=== PATIENT | male | born 1990 | race Caucasian/White ===

== ENCOUNTER 2017-03-11 20:16 | Emergency (ER) | payer OTHER | END 2017-03-11 22:39 | disposition home or self-care (01) | DX: J06.9 Acute upper respiratory infection, unspecified (principal); B97.89 Other viral agents as the cause of diseases classified elsewhere ==

== ENCOUNTER 2017-06-10 14:13 | Emergency (ER) | payer OTHER ==
[2017-06-10 14:19] VITALS: BP 127/79
[2017-06-10] MEDS ORDERED: HYDROcod/ACETAM 5/325 MG TABLET PO STA (15:02)
--- NOTE | 2017-06-10 15:05 | ED Physician Documentation ---
PD HPI LOWER EXT INJURY - Stated complaint Stated Complaint: L LEG INJURY - Chief complaint Chief Complaint: Ext Problem - History obtained from History obtained from: Patient - History of Present Illness PD HPI LOW EXT INJURY LOCATION: Left, Upper leg (Doing sprints today and felt a pop in his left hamstring and now has significant pain there but is able to walk and bear weight.) Review of Systems Constitutional: reports: Reviewed and negative Cardiac: reports: Reviewed and negative Respiratory: reports: Reviewed and negative PD PAST MEDICAL HISTORY - Past Surgical History Past Surgical History: Yes HEENT: Tonsil/Adenoidectomy - Present Medications Home Medications: Ambulatory Orders Medication Instructions Recorded Confirmed HYDROcod/ACETAM 5/325 [[place] 5/325] 1 - 2 ea PO Q6H PRN #10 tablet 06/10/17 Ibuprofen [Motrin] 800 mg PO Q8H PRN #30 tablet 06/10/17 - Allergies Allergies/Adverse Reactions: Allergies Allergy/AdvReac Type Severity Reaction Status Date / Time No Known Drug Allergies Allergy Verified 03/11/17 20:48 - Social History Does the pt smoke?: No Smoking Status: Never smoker Does the pt drink ETOH?: No Does the pt have substance abuse?: No - Immunizations Immunizations are current?: Yes - POLST Patient has POLST: No PD ED PE NORMAL - Vitals Vital signs reviewed: Yes - General General: Alert and oriented X 3, No acute distress - Extremities Extremities: Other (Tender to palpation over the left hamstring, and unable to flex at the knee actively because of pain) - Neuro Neuro: Alert and oriented X 3, Normal speech - Psych Psych: Normal mood, Normal affect Results - Vitals Vitals: Vital Signs - 24 hr 06/10/17 14:17 Temperature 35.5 C L Heart Rate 94 Respiratory 18 Rate Blood Pressure 127/79 O2 Saturation 100 Oxygen O2 Source Room air Departure - Departure Disposition: 01 Home, Self Care Clinical Impression: Hamstring sprain Qualifiers: Encounter type: initial encounter Laterality: left Qualified Code(s): S73.192A - Other sprain of left hip, initial encounter Condition: Good Record reviewed to determine appropriate education?: Yes Instructions: Strains Sprains Tx Prescriptions: Ibuprofen [Motrin] 800 mg PO Q8H PRN #30 tablet PRN Reason: PAIN &/OR FEVER HYDROcod/ACETAM 5/325 [[place] 5/325] 1 - 2 ea PO Q6H PRN #10 tablet PRN Reason: Pain Comments: Call your doctor to arrange a follow-up appointment, make the next available appointment. In the interim, return anytime if worse or if new symptoms develop. Forms: Activity restrictions
[2017-06-10] MEDS ORDERED: HYDROcod/ACETAM 5/325 MG TABLET ONE (15:16)
== END 2017-06-10 15:35 | disposition home or self-care (01) ==
LOC: ED 14:13
DX: S73.192A Other sprain of left hip, initial encounter (principal); X58.XXXA Exposure to other specified factors, initial encounter; Y93.02 Activity, running
CPT/HCPCS: 99283; A9270

== ENCOUNTER 2018-03-23 20:12 | Emergency (ER) | payer OTHER ==
--- NOTE | 2018-03-23 20:36 | XRAY Report ---
EXAM: CHEST RADIOGRAPHY EXAM DATE: 03/23/2018 08:27 PM. CLINICAL HISTORY: Productive cough. COMPARISON: None. TECHNIQUE: 2 views. FINDINGS: Lungs/Pleura: Mild generalized interstitial prominence with some peribronchial cuffing. No localized infiltrate, consolidation, effusion, or pneumothorax. Mediastinum: Heart and mediastinal contours are unremarkable. Other: None. IMPRESSION: Interstitial prominence, compatible with bronchitis or interstitial pneumonitis, probably viral or mycoplasmal. [facility] Referring Provider Line: [phone] SITE ID: [id number]
--- NOTE | 2018-03-23 21:40 | ED Physician Documentation ---
PD HPI URI - Stated complaint Stated Complaint: SORE THROAT - Chief complaint Chief Complaint: Heent - History obtained from History obtained from: Patient - History of Present Illness Timing - onset: How many days ago (2-3) Timing duration: Days (2-3) Timing details: Gradual onset Associated symptoms: Fever (Tmax 100.6), Rhinorrhea, Sore throat, Productive cough, Other (generalized NINO). No: Dyspnea Improves by: Nothing Worsened by: Other (no exacerbating factors) Recently seen: Clinic (evaluated at [facility] earlier today, no testing/rx) - Additional information Additional information: c/o productive cough, sore throat, "lost my voice" (per patient), generalized headache, rhinorrhea. symptoms worsening since starting 2-3 days ago Review of Systems Constitutional: reports: Fever Nose: reports: Rhinorrhea / runny nose Throat: reports: Sore throat Respiratory: reports: Cough. denies: Dyspnea PD PAST MEDICAL HISTORY - Past Medical History Past Medical History: No - Past Surgical History Past Surgical History: Yes HEENT: Tonsil/Adenoidectomy - Present Medications Home Medications: Ambulatory Orders Medication Instructions Recorded Confirmed Azithromycin [Zithromax] 250 mg PO DAILY #4 tablet 03/23/18 Benzonatate [Tessalon Perle] 100 mg PO Q8HR PRN #20 capsule 03/23/18 - Allergies Allergies/Adverse Reactions: Allergies Allergy/AdvReac Type Severity Reaction Status Date / Time No Known Drug Allergies Allergy Verified 03/23/18 20:16 - Social History Does the pt smoke?: No Smoking Status: Never smoker Does the pt drink ETOH?: No Does the pt have substance abuse?: No - Immunizations Immunizations are current?: Yes - POLST Patient has POLST: No PD ED PE NORMAL - Vitals Vital signs reviewed: Yes - General General: Alert and oriented X 3, No acute distress, Well developed/nourished, Other - HEENT HEENT: Moist mucous membranes, Pharynx benign - Neck Neck: Supple, no meningeal sign - Respiratory Respiratory: No respiratory distress, Clear bilaterally Results - Vitals Vitals: Vital Signs - 24 hr 03/23/18 03/23/18 20:13 22:07 Temperature 37.2 C 36.6 C Heart Rate 95 84 Respiratory 20 18 Rate Blood Pressure 162/76 H 148/83 H O2 Saturation 99 100 Oxygen O2 Source Room air - Labs Labs: Laboratory Tests 03/23/18 20:20 Group A Strep Rapid Negative - Rads (name of study) chest xray Radiology: Prelim report reviewed, See rad report PD MEDICAL DECISION MAKING - ED course Complexity details: reviewed results, re-evaluated patient, considered differential, d/w patient Departure - Departure Disposition: 01 Home, Self Care Clinical Impression: Pneumonitis Condition: Good Instructions: ED Pneumonia Adult Follow-Up: Luis Daniel Watkins ARNP [Primary Care Provider] - (3-4 days) Prescriptions: Benzonatate [Tessalon Perle] 100 mg PO Q8HR PRN #20 capsule PRN Reason: Cough Azithromycin [Zithromax] 250 mg PO DAILY #4 tablet Discharge Date/Time: 03/23/18 22:09
[2018-03-23] MEDS ORDERED: BENZONATATE 100 MG CAPSULE PO STA (22:00)
[2018-03-23] MEDS ORDERED: AZITHROMYCIN 250 MG TABLET PO STA (22:00)
[2018-03-23 22:08] VITALS: BP 148/83
== END 2018-03-23 22:09 | disposition home or self-care (01) ==
LOC: ED 20:12
DX: J18.9 Pneumonia, unspecified organism (principal)
CPT/HCPCS: 71046; 87070; 87430; 99283; A9270